=== PATIENT | female | born 1950 | race African-American/Black ===

== ENCOUNTER 2018-07-16 13:35 | Inpatient (IN) | payer MEDICARE, OTHER ==
[2018-07-16] MEDS ORDERED: Morphine 4 MG/ML VIAL ONE ×2 (13:50→15:45)
[2018-07-16] MEDS ORDERED: Ondansetron PF 4 MG/2 ML Vial ONE (13:50)
[2018-07-16 14:04] LABS: #Eosinphils 0.1 thou/uL (0.0-0.7); #Lymphocytes 1.8 thou/uL (1.20-3.40); #Monocytes 0.5 thou/uL (0.11-0.59); %Basophils 0.6 % (0.0-1.0); %Eosinophils 0.9 % (0.0-10.0); %Lymphocytes 28.3 % (21.0-51.0); %Monocytes 7.8 % (0.0-10.0); %Neutrophils 62.5 % (42.0-75.0); Hemoglobin 11.2 g/dL (12.0-16.0); Mean Corpuscular HGB CONC 32.3 g/dL (32.0-36.0); Mean Corpuscular Hemoglobin 26.8 pg (27.0-31.0); Mean Platelet Volume 10.7 fL (7.4-10.4); Platelet Count 234 thou/uL (130-400); RBC Distribution Width 13.6 % (11.5-14.5); Red Blood Cell (RBC) Count 4.16 mill/uL (4.20-5.40); White Blood Cell (WBC) Count 6.3 thou/uL (4.8-10.8)
[2018-07-16 14:29] LABS: ALT (SGPT) 140 U/L (8-55); AST (SGOT) 120 U/L (5-34); Albumin 4.2 g/dL (3.4-4.8); Alkaline Phosphatase 113 U/L (40-150); Anion Gap 17 mmol/L (10-20); BUN (Urea Nitrogen) 10 mg/dL (9.8-20.1); Bilirubin, Total 0.3 mg/dL (0.2-1.2); Calc. Creatinine Clearance 0 mL/min (70-130); Calcium 9.4 mg/dL (7.8-10.44); Carbon Dioxide 21 mmol/L (23-31); Chloride 101 mmol/L (98-107); Estimated GFR-MDRD 76; Globulin 3.3 g/dL (2.4-3.5); Glucose 89 mg/dL (80-115); Potassium 4.1 mmol/L (3.5-5.1); Protein, Total 7.5 g/dL (6.0-8.3); Sodium 135 mmol/L (136-145)
--- NOTE | 2018-07-16 14:33 | RAD ---
LEFT TIB FIB TWO VIEWS: History: Fall. FINDINGS: The lateral views does not entirely include the ankle. There is an obliquely oriented distal fibular fracture in a transverse medial malleolar fracture. I cannot really assess the posterior malleolus on this exam. IMPRESSION: Bimalleolar ankle fracture. Recommend ankle films for better assessment. POS: JUAN JOSE
--- NOTE | 2018-07-16 14:43 | RAD ---
LEFT ANKLE 3 VIEWS: Date: 07/16/18 HISTORY: Left ankle pain. FINDINGS/IMPRESSION: Trimalleolar fracture is seen with minimally displaced fractures of the malleoli. The ankle mortise i s maintained. There is soft tissue swelling. POS: C
--- NOTE | 2018-07-16 14:57 | RAD ---
PORTABLE CHEST: Date: 07/16/18 INDICATION: Preoperative evaluation. Fall with injury to left lower extremity. FINDINGS: Lungs are clear. Heart and mediastinum appear normal. No acute lung process seen. IMPRESSION: No acute findings. POS: [facility]
[2018-07-16 17:20] VITALS: BMI 24.4
[2018-07-16] MEDS ORDERED: Ibuprofen 600 MG TAB PO PRN (17:45)
[2018-07-16] MEDS ORDERED: traMADol HCl 50 MG TAB PO PRN (17:45)
[2018-07-16] MEDS ORDERED: hydrALAZINE 20 MG/ML VIAL SLOW IVP PRN (17:45)
[2018-07-16] MEDS ORDERED: Morphine 4 MG/ML VIAL SLOW IVP PRN (17:45)
[2018-07-16] MEDS ORDERED: Dextrose 5% in Water 1,000 ML IV PRN (17:45)
[2018-07-16] MEDS ORDERED: Dextrose 50% Abboject 50 ML SYRINGE SLOW IVP PRN (17:45)
[2018-07-16] MEDS ORDERED: Ondansetron PF 4 MG/2 ML Vial IVP PRN (17:45)
--- NOTE | 2018-07-16 18:24 | HP ---
REFERRING PHYSICIAN: Dr. Greene, Emergency Medicine. TRAUMA SURGEON: Paul Ambrosio DO. CONSULTING PHYSICIAN: Dr. Laurent, Orthopedic surgery. HISTORY OF PRESENT ILLNESS: The patient is a 67-year-old female patient, who reported a mechanical fall from standing last night. She reports getting up from bed quickly to change DVD player when she reported her legs gave out and she fell. She denies any loss of consciousness, dizziness, or lightheaded at that time. She did not hit her head and denied head or neck pain. The patient is not on any anticoagulation. After the injury, she reported that she got herself back up into bed and went to sleep. In the morning, she was complaining of pain and her daughter checked in on her and convinced the patient to go to the emergency department. In the emergency department, she was evaluated and received x-ray of the left tib- fib and left ankle as well as a chest x-ray which demonstrated a left trimalleolar ankle fracture. Dr. Laurent, Orthopedic surgery, was consulted as well as Trauma surgery. REVIEW OF SYSTEMS: All additional review of systems negative except as indicated in the HPI. PAST MEDICAL HISTORY: Hypertension and bipolar disorder. PAST SURGICAL HISTORY: Appendectomy at the age of 8. SOCIAL HISTORY: The patient reports drinking 2 to 3 beers per week and smokes a third of a pack of cigarettes a day. Also positive for cocaine use. She reports stopping use 11 years ago. MEDICATIONS: Trazodone, gabapentin, duloxetine, amlodipine, and lisinopril. ALLERGIES: NO KNOWN DRUG ALLERGIES. PHYSICAL EXAMINATION: VITAL SIGNS: Temperature 98.4, pulse 97, respirations 20, O2 saturation 92% on room air, blood pressure 105/70. PRIMARY ASSESSMENT: Airway intact. Equal breath sounds bilaterally. 2+ pulses palpable and radials, femorals and DP/PT bilaterally. GCS 15, gross motor and sensation intact. No lacerations, bruises, or external bleeding. SECONDARY ASSESSMENT: HEAD: Normocephalic and atraumatic. No gross palpable skull deformities/tenderness. EYES: Pupils 3 to 2, equal, round, and reactive to light. ENT: No hemotympanum. No epistaxis. No septal hematoma. Midface is stable to palpation. No bleeding in the oropharynx. Dentition is intact. No anterior injury/crepitus/tenderness to the neck. C-SPINE: No step-offs or deformities. Nontender, no C-collar in place. CHEST: Nontender. No crepitus. No abrasions/ecchymosis, equal chest movement. ABDOMEN: Soft, nontender, nondistended. PELVIS: Stable to palpation. Nontender. No abrasions noticed. RECTAL: Deferred. GENITOURINARY: Deferred. EXTREMITIES: Splint applied to left tib-fib and ankle with dressing clean, dry , and intact. No abrasions or ecchymosis noted. Otherwise, 2+ radial, femoral, and DP pulses present bilaterally. Gross motor and sensation intact. BACK/SPINE: No step-offs or deformities or tenderness palpable to the thoracic or lumbar spine, no abrasions or ecchymosis noted. NEUROLOGIC: 5/5 stoker erector and servicer strength bilaterally. Plantar flexion and dorsiflexion intact. Gross normal sensation x4 extremities. LABORATORY DATA: Laboratory findings; white blood cell 6.3, hemoglobin 11.2, hematocrit 34.6, and platelets 234. Sodium 135, potassium 4.1, chloride 101, carbon dioxide 21, BUN 10, creatinine 0.90. DIAGNOSTIC DATA: Chest x-ray demonstrated no acute findings. X-ray of the left ankle demonstrated trimalleolar fracture is seen with minimally displaced fracture of the malleoli. Ankle mortise is maintained. There is soft tissue swelling. X-ray of the left tib-fib demonstrated by malleolar ankle fracture. Recommend ankle film for better assessment. ASSESSMENT: 1. Status post mechanical fall from standing, delayed presentation. 2. Left trimalleolar ankle fracture. 3. History of hypertension and bipolar disorder. PLAN: The patient will be admitted to the Trauma Service and will go to the operating room tomorrow with Dr. Laurent. She can have a regular diet, but will be n.p.o. after midnight. We will start pain management with oral Tylenol, gabapentin, p.r.n. ibuprofen, and tramadol. We will continue p.r.n. morphine as needed for breakthrough pain. We will continue to monitor for signs of alcohol withdrawal, but suspicion is low. We will continue to hold additional home medications for now and will restart as clinically indicated. We will hold chemo-DVT prophylaxis at this time. PT and OT consulted to see the patient postoperatively. The patient was seen and examined by Dr. Ambrosio and myself today in the emergency department. Job ID: [id number] MTDD
[2018-07-16] MEDS: Acetaminophen 500 MG TAB PO SCH (20:22)
[2018-07-16] MEDS ORDERED: traMADol HCl 50 MG TAB ONE (21:40)
[2018-07-16] MEDS ORDERED: Famotidine/PF 20 mg/2ml Vial ONE (22:01)
[2018-07-16] MEDS: Senokot S 8.6-50 MG TAB PO SCH (22:03)
[2018-07-16] MEDS: Famotidine/PF 20 mg/2ml Vial SLOW IVP SCH (22:03)
[2018-07-16 23:15] LABS: Amphetamine Not Detected (NotDetected); Barbiturates Screen Not Detected (NotDetected); Benzodiazepine Screen Not Detected (NotDetected); Cocaine Metabolite Screen Not Detected (NotDetected); Medtox Control Line Valid? VALID (VALID); Medtox Reader # READER 4; Methadone Not Detected (NotDetected); Methamphetamine Not Detected (NotDetected); Opiate Screen Detected (NotDetected); Oxycodone Screen Not Detected (NotDetected); Phencyclidine (PCP) Not Detected (NotDetected); THC/Cannabinoid Screen Detected (NotDetected); Tricyclic Screen Not Detected (NotDetected)
[2018-07-17] MEDS ORDERED: Acetaminophen 500 MG TAB ONE ×3 (00:01→05:43)
[2018-07-17] MEDS: Acetaminophen 500 MG TAB PO SCH ×5 (00:02→23:51)
[2018-07-17] MEDS: Gabapentin 300 MG CAP PO SCH ×3 (00:22→20:34)
--- NOTE | 2018-07-17 01:20 | CON ---
DATE OF CONSULTATION: 07/16/2018 CHIEF COMPLAINT: Ms. Neff complains of left ankle pain. HISTORY OF PRESENT ILLNESS: Ms. Neff is a 67-year-old female, who was getting up out of bed today when she lost her balance and fell. She reports her legs collapsed. She twisted her ankle when she fell. She sustained pain and deformity of the left ankle. She was found to have a trimalleolar ankle fracture upon evaluation and x-ray in the emergency department. She has been splinted. She has been comfortable since the splint was placed. She denies other injuries. She has received pain medication. She reports being in good health and is normally able to ambulate without any assistive device at baseline. PAST MEDICAL HISTORY: Hypertension and bipolar disorder. PAST SURGICAL HISTORY: Appendectomy many years ago. No recent surgeries. SOCIAL HISTORY: The patient drinks occasional alcohol and occasional tobacco. History of drug use is positive as well. ALLERGIES: NO KNOWN DRUG ALLERGIES. FAMILY MEDICAL HISTORY: Noncontributory. IMAGING STUDIES: X-rays of the left ankle demonstrate a trimalleolar ankle fracture with displacement of the medial and lateral malleolus. PHYSICAL EXAMINATION: VITAL SIGNS: Temperature is 98.4, pulse is 97, respiratory rate 20, oxygen saturation 94% on room air. GENERAL: She is alert and oriented, lying supine, in no apparent distress. RESPIRATORY: Breathing comfortably. ABDOMEN: Soft, nontender, nondistended. MUSCULOSKELETAL: The patient's left lower extremity is in a splint. She is able to flex and extend the toes. Two-second capillary refill. Toes are warm and well perfused. Splint is clean and dry and intact. Right lower extremity and upper extremities are atraumatic. IMPRESSION: Left trimalleolar unstable ankle fracture in an elderly female. PLAN: At this point, the patient will need to go to the operating room. I will plan for surgical intervention tomorrow for her left ankle open reduction and internal fixation. Goal of surgery is to restore the anatomy and promote healing. Risks have been reviewed with her, she is at risk of infection, hardware failure, nonunion, malunion, and others. She wants to proceed as soon as possible. She should be n.p.o. at midnight. She will have preoperative antibiotics and DVT prophylaxis. Job ID: [id number]
[2018-07-17 04:38] LABS: #Basophils 0.1 thou/uL (0.0-0.2); #Eosinphils 0.1 thou/uL (0.0-0.7); #Lymphocytes 1.8 thou/uL (1.20-3.40); #Monocytes 0.4 thou/uL (0.11-0.59); #Neutrophils 2.5 thou/uL (1.40-6.50); %Basophils 1.7 % (0.0-1.0); %Eosinophils 2.4 % (0.0-10.0); %Monocytes 8.7 % (0.0-10.0); %Neutrophils 51.2 % (42.0-75.0); Hemoglobin 11.6 g/dL (12.0-16.0); Mean Corpuscular HGB CONC 32.2 g/dL (32.0-36.0); Mean Corpuscular Hemoglobin 27.5 pg (27.0-31.0); Mean Corpuscular Volume 85.4 fL (78.0-98.0); Mean Platelet Volume 11.9 fL (7.4-10.4); Platelet Count 219 thou/uL (130-400); RBC Distribution Width 13.6 % (11.5-14.5); Red Blood Cell (RBC) Count 4.23 mill/uL (4.20-5.40); White Blood Cell (WBC) Count 4.9 thou/uL (4.8-10.8)
[2018-07-17 04:46] LABS: INR-International Normal Ratio 1.1; PTT 29.6 SEC (22.9-36.1); Prothrombin Time 14.5 SEC (12.0-14.7)
[2018-07-17 04:59] LABS: Anion Gap 13 mmol/L (10-20); BUN (Urea Nitrogen) 6 mg/dL (9.8-20.1); Calc. Creatinine Clearance 57 mL/min (70-130); Calcium 9.2 mg/dL (7.8-10.44); Carbon Dioxide 23 mmol/L (23-31); Chloride 102 mmol/L (98-107); Estimated GFR-MDRD 80; Glucose 106 mg/dL (80-115); Magnesium 2.2 mg/dL (1.6-2.6); Phosphorus 3.1 mg/dL (2.3-4.7); Potassium 4.1 mmol/L (3.5-5.1); Sodium 134 mmol/L (136-145)
[2018-07-17] MEDS ORDERED: Potassium Phosphate 15 MMOL in Sodium Chloride 0.9% 250 ML 250 ML IVPB SCH (07:45)
[2018-07-17] MEDS: Sodium Chloride 0.9% 1,000 ML IV SCH (08:15)
[2018-07-17] MEDS: Famotidine/PF 20 mg/2ml Vial SLOW IVP SCH ×2 (08:16→20:35)
[2018-07-17] MEDS: DULoxetine 60 MG CAP PO SCH ×2 (08:16→20:34)
[2018-07-17] MEDS: Polyethylene Glycol 3350 17 GM Packet PO SCH (08:16)
[2018-07-17] MEDS: Senokot S 8.6-50 MG TAB PO SCH ×2 (08:16→20:34)
[2018-07-17] MEDS ORDERED: Polyethylene Glycol 3350 17 GM Packet PO SCH (09:00)
[2018-07-17] MEDS ORDERED: Ketorolac Tromethamine 30 MG/ML VIAL ONE ×3 (09:02→13:52)
[2018-07-17] MEDS ORDERED: Ketorolac Tromethamine 30 MG/ML VIAL IVP SCH (09:30)
[2018-07-17] MEDS ORDERED: Lidocaine 1% PF 5 ML VIAL ONE (10:37)
[2018-07-17] MEDS ORDERED: PROPOFOL 200 MG/20 ML VIAL ONE (10:37)
[2018-07-17] MEDS ORDERED: Ondansetron PF 4 MG/2 ML Vial ONE (10:37)
[2018-07-17] MEDS ORDERED: Bupivacaine PF 0.5% 30 ML VIAL ONE (11:35)
[2018-07-17] MEDS ORDERED: Fentanyl 100 MCG/2 ML VIAL ONE (11:45)
[2018-07-17] MEDS ORDERED: Dexamethasone 4 mg/ml Vial ONE (11:47)
[2018-07-17] MEDS ORDERED: Midazolam HCl 2 mg/2 ml Vial ONE (11:52)
[2018-07-17] MEDS ORDERED: CEFAZOLIN 2 GM/50 ML BAG IVPB SCH (12:00)
[2018-07-17] MEDS ORDERED: CEFAZOLIN 2 GM/50 ML BAG ONE (12:05)
[2018-07-17] MEDS ORDERED: Promethazine HCl 25 MG/ML VIAL SLOW IVP PRN (13:00)
[2018-07-17] MEDS ORDERED: Promethazine HCl 25 MG/ML VIAL IM PRN (13:00)
[2018-07-17] MEDS ORDERED: Ondansetron HCl/PF 4 MG/2 ML Vial IVP PRN (13:00)
[2018-07-17] MEDS ORDERED: CEFAZOLIN/Water 2 GM/20 ML SYRINGE SLOW IVP SCH (13:30)
--- NOTE | 2018-07-17 13:32 | PRG ---
DATE OF SERVICE: 07/17/2018 SUBJECTIVE: The patient is a 67-year-old female status post mechanical fall from standing with a left trimalleolar ankle fracture. The patient was seen this morning sitting up in bed. Reported pain occasionally that was relieved with current pain regimen. She is n.p.o. for the OR today with Dr. Laurent for fixation of her left ankle. She has no other complaints at this time. Denies nausea, vomiting, or diarrhea. PHYSICAL EXAMINATION: VITAL SIGNS: Temperature 98.4, pulse 78, respirations 16, oxygen saturation 96% on room air, and blood pressure 161/73. GENERAL: Alert and well-appearing elderly female, sitting up in bed. NEURO: GCS is 15. Alert and oriented x3. Gross motor and sensation intact. Pupils equal, round, reactive to light. PULMONARY: No signs of acute distress. Equal chest rise and fall. Lung grimaldo clear bilaterally. HEART: Regular rate and rhythm. No murmurs, gallops, or rubs. GI. Abdomen is soft, nontender, nondistended with positive bowel sounds. EXTREMITIES: Gross motor and sensation intact. Splint to left lower extremity with dressings clean, dry, and intact. 2+ pulses in all extremities. No swelling noted. LABORATORY FINDINGS: White blood cell count 4.9, hemoglobin 11.6, hematocrit 36.1, platelets 219. Sodium 134, potassium 4.1, chloride 102, carbon dioxide 23, BUN 9, creatinine 0.86, phos 3.1, magnesium 2.2. DIAGNOSTIC FINDINGS: There are no diagnostic findings to report. ASSESSMENT: 1. Status post mechanical fall from standing, delayed presentation. 2. Left trimalleolar fracture. 3. History of hypertension and bipolar disorder. 4. Hypophosphatemia. PLAN: The patient will go to the OR today with Dr. Laurent for fixation of her left ankle fracture. Postop, she can have a regular diet, but is n.p.o. for now with normal saline at 75 an hour. She will resume her current pain regimen when she comes back from the OR. Her phosphorus was replaced. Postop, she can start her chemo-DVT prophylaxis. Postop. She will also receive physical and occupational therapy. The patient was seen and examined by Dr. Ambrosio and myself this morning during rounds. Job ID: [id number]
--- NOTE | 2018-07-17 13:52 | PRG ---
DATE OF SERVICE: 07/17/2018 SUBJECTIVE: Ms. Neff is a 67-year-old woman, who was admitted yesterday following a fall, sustaining a trimalleolar ankle fracture. The patient is awake and alert, reporting significant pain to the left lower extremity. She denies any nausea, vomiting, chest pain, or dyspnea. OBJECTIVE: VITAL SIGNS: Blood pressure this morning is 161/73, pulse 79, respiratory rate is 18, temperature 98.4 degrees Fahrenheit, and oxygen saturation 96% on room air. HEART: Reveals regular rate and rhythm. No murmurs or gallops auscultated. LUNGS: Clear to auscultation bilaterally. Breathing, regular and unlabored. ABDOMEN: Soft, nontender, and nondistended. NEUROLOGIC: Reveals no focal deficits present. LABORATORY FINDINGS: Today include a CBC with 4900 white blood cells, hemoglobin and hematocrit stable at 11.6 and 36.1 respectively, and platelet count is 219,000. Metabolic profile; sodium 134, potassium is 4.1, chloride is 102, bicarb 23, BUN 6, creatinine 0.86, glucose 106, magnesium 2.2, and phosphorus is 3.1. IMPRESSION: 1. Post injury day #1, status post fall. 2. Trimalleolar left ankle fracture. PLAN: Optimize pain management. The patient is certainly hemodynamically stable to proceed with Orthopedic Surgery for repair of the left ankle fracture. The above findings and plan discussed with the patient, who indicates understanding information given. I have answered her questions. Job ID: [id number]
--- NOTE | 2018-07-17 14:03 | RAD ---
LEFT ANKLE THREE VIEWS: History: Fracture. ORIF left ankle. FINDINGS/IMPRESSION: Interval reduction and internal fixation of the fractures are seen since the previous day's exam. Two screws are seen present in the medial malleolus and plate and screw through the distal fibula. POS: OFF
--- NOTE | 2018-07-17 14:29 | OP ---
DATE OF PROCEDURE: 07/17/2018 PROCEDURE PERFORMED: Open reduction and internal fixation of left trimalleolar ankle fracture. PREOPERATIVE DIAGNOSIS: Left trimalleolar ankle fracture with displacement. POSTOPERATIVE DIAGNOSIS: Left trimalleolar ankle fracture with displacement. COMPLICATIONS: None. ESTIMATED BLOOD LOSS: Minimal. SUBSYSTEMS ENGINEER: Lena Reynoso PA-C. IMPLANTS: Synthes 1/3 tubular plate, 6-hole with two 4.0 cancellous screws, partially threaded. INDICATIONS: Ms. Neff is a 67-year-old female, who fell, and she fractured her left ankle. She was indicated for open reduction and internal fixation to restore anatomic alignment and promote healing and prevent complications of prolonged bedrest. Risks have been reviewed in detail. She elected to proceed with the operation. DESCRIPTION OF PROCEDURE: Ms. Neff was identified in the preoperative holding area. Correct extremity was marked. She was carried to the operating room. She was positioned supine. General anesthesia was induced. A regional block had been placed as well. The left lower extremity was prepped and draped as routine. At this point, we performed a lateral approach to the distal fibula. We dissected down through the subcutaneous tissues to the bony level. The fracture of the fibula was identified and exposed. At this point, we irrigated hematoma including the bony edges. We then reduced the fracture into an anatomic position. We placed a 1/3 tubular plate along the lateral cortex. Six screws were placed transfixing the plate to the bone and holding our reduction rigidly. Next, we took x-ray images confirming hardware placement. There were no complications. At this point, we moved to the medial side. A medial incision was made. We dissected down directly to the bony level. We exposed the medial malleolar fracture. We then irrigated hematoma. At this point, we reduced the medial malleolar fracture back into its anatomic position. We then placed two screws, one anterior and one posterior across the medial malleolar fracture. Again, reducing the fracture, holding it in a rigid position. X-rays were obtained as well as a stress view, which was negative. We thoroughly irrigated with copious lavage. We then closed with 0 Vicryl suture, 2-0 Vicryl suture, and 3-0 nylon for the skin. A sterile dressing was applied at this point. The patient was taken to the recovery room in good condition without complication. Job ID: [id number]
[2018-07-17] MEDS ORDERED: Bupivacaine HCl 0.5%/Epinephrine 1:200,000/PF 30 ml Vial ONE (16:44)
[2018-07-17] MEDS: CEFAZOLIN 2 GM/50 ML-DEXTROSE 2 GM in Premix Bag 1 BAG IVPB SCH (20:27)
[2018-07-17] MEDS: traMADol HCl 50 MG TAB PO PRN (20:27)
[2018-07-17] MEDS ORDERED: Prevnar 13-Val Conj/PF 0.5 ML SYRINGE IM ONE (21:00)
[2018-07-18] MEDS: Sodium Chloride 0.9% 1,000 ML IV SCH (03:45)
[2018-07-18] MEDS: CEFAZOLIN 2 GM/50 ML-DEXTROSE 2 GM in Premix Bag 1 BAG IVPB SCH (04:59)
[2018-07-18] MEDS: Acetaminophen 500 MG TAB PO SCH ×4 (06:19→23:32)
[2018-07-18 07:12] LABS: #Lymphocytes 0.9 thou/uL (1.20-3.40); #Monocytes 0.5 thou/uL (0.11-0.59); #Neutrophils 9.9 thou/uL (1.40-6.50); %Basophils 0.1 % (0.0-1.0); %Eosinophils 0.1 % (0.0-10.0); %Lymphocytes 8.3 % (21.0-51.0); %Monocytes 4.1 % (0.0-10.0); %Neutrophils 87.4 % (42.0-75.0); Hemoglobin 9.6 g/dL (12.0-16.0); Mean Corpuscular HGB CONC 31.4 g/dL (32.0-36.0); Mean Corpuscular Hemoglobin 27.4 pg (27.0-31.0); Mean Corpuscular Volume 87.1 fL (78.0-98.0); Mean Platelet Volume 12.1 fL (7.4-10.4); Platelet Count 184 thou/uL (130-400); RBC Distribution Width 13.7 % (11.5-14.5); Red Blood Cell (RBC) Count 3.52 mill/uL (4.20-5.40); White Blood Cell (WBC) Count 11.4 thou/uL (4.8-10.8)
[2018-07-18 07:25] LABS: Anion Gap 16 mmol/L (10-20); BUN (Urea Nitrogen) 5 mg/dL (9.8-20.1); Calc. Creatinine Clearance 57 mL/min (70-130); Calcium 8.6 mg/dL (7.8-10.44); Carbon Dioxide 21 mmol/L (23-31); Chloride 105 mmol/L (98-107); Estimated GFR-MDRD 80; Glucose 132 mg/dL (80-115); Phosphorus 3.7 mg/dL (2.3-4.7); Potassium 4.1 mmol/L (3.5-5.1); Sodium 138 mmol/L (136-145)
[2018-07-18] MEDS: Polyethylene Glycol 3350 17 GM Packet PO SCH (08:28)
[2018-07-18] MEDS: DULoxetine 60 MG CAP PO SCH ×2 (08:29→20:20)
[2018-07-18] MEDS: Senokot S 8.6-50 MG TAB PO SCH ×2 (08:29→20:20)
[2018-07-18] MEDS: Gabapentin 300 MG CAP PO SCH ×2 (08:29→20:20)
[2018-07-18] MEDS: Famotidine/PF 20 mg/2ml Vial SLOW IVP SCH (08:31)
[2018-07-18] MEDS: traMADol HCl 50 MG TAB PO PRN ×3 (08:36→21:01)
[2018-07-18] MEDS ORDERED: Ibuprofen 600 MG TAB PO PRN (08:40)
[2018-07-18] MEDS ORDERED: Gabapentin 300 MG CAP PO SCH (09:00)
[2018-07-18] MEDS: Aspirin 81 mg Enteric Coated Tablet PO SCH ×2 (09:44→20:21)
[2018-07-18] MEDS: Lisinopril 10 MG TAB PO SCH (09:45)
[2018-07-18] MEDS: Amlodipine 5 MG TAB PO SCH (09:45)
--- NOTE | 2018-07-18 12:36 | PRG ---
DATE OF SERVICE: 07/18/2018 SUBJECTIVE: The patient is hospital day 2, postop day 1, status post left trimalleolar fracture for which she underwent open reduction and internal fixation of the same. Yesterday, she tolerated the procedure well. This morning, she has been working with Physical and Occupational therapy. Her pain is controlled. She is tolerating a diet. OBJECTIVE: VITAL SIGNS: Temperature is 98.1, heart rate 92, blood pressure 157/91, respirations 16, and oxygen saturation is 96% on room air. GENERAL: The patient is resting comfortably in bed. She is awake, alert, and oriented. HEENT: Unremarkable. LUNGS: Clear to auscultation with good inspiratory and expiratory effort. HEART: Regular rate and rhythm. ABDOMEN: Soft, flat, and nontender with active bowel sounds. EXTREMITIES: Neurovascularly intact x4. Postop dressing and splint are clean, dry, and intact. LABORATORY FINDINGS: White blood cell count 11.1, hemoglobin 9.6, hematocrit 30.6, and platelets 184. Sodium 138, potassium 4.1, chloride 105, CO2 of 21, BUN 5, creatinine 0.86, glucose 132, magnesium 2.0, and phosphorus 3.7. DIAGNOSTIC STUDIES: There are no radiographs to review this morning. ASSESSMENT AND PLAN: 1. Status post ground level fall. 2. Left trimalleolar fracture, status post open reduction and internal fixation. Plan will be to continue physical and occupational therapy. Rehab screening has been submitted, and we will await the final placement decision. The patient was evaluated with Dr. Ambrosio this morning during rounds. Job ID: [id number]
[2018-07-18] MEDS ORDERED: Non-Formulary Item 1 EACH (Trazodone Hcl [Trazodone Hcl] 1 TAB) PO SCH (21:00)
[2018-07-19] MEDS: Acetaminophen 500 MG TAB PO SCH ×2 (05:13→11:31)
[2018-07-19] MEDS: traMADol HCl 50 MG TAB PO PRN ×2 (05:13→11:31)
[2018-07-19] MEDS: DULoxetine 60 MG CAP PO SCH (08:45)
[2018-07-19] MEDS: Polyethylene Glycol 3350 17 GM Packet PO SCH (08:45)
[2018-07-19] MEDS: Amlodipine 5 MG TAB PO SCH (08:45)
[2018-07-19] MEDS: Aspirin 81 mg Enteric Coated Tablet PO SCH (08:46)
[2018-07-19] MEDS: Lisinopril 10 MG TAB PO SCH (08:47)
[2018-07-19] MEDS: Gabapentin 300 MG CAP PO SCH (08:47)
[2018-07-19] MEDS: Senokot S 8.6-50 MG TAB PO SCH (08:47)
--- NOTE | 2018-07-19 12:30 | DIS ---
DATE OF ADMISSION: 07/16/2018 DATE OF DISCHARGE: 07/19/2018 ADMISSION DIAGNOSES: 1. Status post fall from standing with delayed presentation. 2. Left trimalleolar ankle fracture. 3. History of hypertension and bipolar disorder. CONSULTATIONS: Orthopedics, Edwin Laurent MD PROCEDURES PERFORMED: Open reduction and internal fixation of left trimalleolar ankle fracture. SUMMARY: The patient is a 67-year-old woman, who reportedly had a fall from standing the previous night of her admission. She was brought to the Emergency Department, where she underwent evaluation and examination and was noted to have the above injury. She would be taken to the operating room to undergo her surgical procedure, which she tolerated well. She will be working with physical and occupational therapy rather quickly and progressed quickly to the point that she requested that she be discharged home with home health and she had family that will be able to help care for her. This was agreed upon by the team and she will be discharged home at time of discharge. She was tolerating a diet. Her pain was controlled and she was ambulating with her walker. Home health with physical therapy was arranged by Case Management and the patient will follow up with Dr. Laurent in 10 to 14 days or sooner as needed. The patient may follow up with Trauma Clinic, if needed. Job ID: [id number]
[2018-07-19 15:01] VITALS: BP 134/68; TEMP 97.9
== END 2018-07-19 15:48 | disposition home health service (06) | DRG 494 ==
LOC: ERS 13:35 → ERHOLD 16:27 → SURG A 07-17 12:01
PROVIDERS: ADMIT Surgery; ATTEND Surgery
PROC: 0QSK04Z Reposition Left Fibula with Internal Fixation Device, Open Approach (ICD-10-PCS; principal; 2018-07-17)
PROC: 0QSH04Z Reposition Left Tibia with Internal Fixation Device, Open Approach (ICD-10-PCS; 2018-07-17)
PROC: 0QSH04Z Reposition Left Tibia with Internal Fixation Device, Open Approach (ICD-10-PCS; 2018-07-17)
DX: S82.852A Displaced trimalleolar fracture of left lower leg, initial encounter for closed fracture (principal); I10 Essential (primary) hypertension; F31.9 Bipolar disorder, unspecified; E83.39 Other disorders of phosphorus metabolism; F17.210 Nicotine dependence, cigarettes, uncomplicated; Z79.899 Other long term (current) drug therapy; W18.39XA Other fall on same level, initial encounter; Y92.009 Unspecified place in unspecified non-institutional (private) residence as the place of occurrence of the external cause
CPT/HCPCS: 27818; 36415; 36416; 71045; 76000; 80048; 80053; 80306; 83735; 84100; 85025; 85610; 85730; 93005; 96374; 96375; 96376; C1713; G0390; J0670; J1100; J1885; J2001; J2250; J2270; J2405; J2704; J3010; J7050; S0020; S0028

== ENCOUNTER 2019-04-05 20:44 | Inpatient (IN) | payer MEDICARE, OTHER ==
[~2019-04-05 20:44] MED LIST: ISOVUE-370 76%-LOCM 1 ML ONE
[2019-04-05] MEDS ORDERED: Morphine 4 MG/ML VIAL ONE (21:13)
[2019-04-05 21:35] LABS: #Basophils 0.1 thou/uL (0.0-0.2); #Eosinphils 0.1 thou/uL (0.0-0.7); #Lymphocytes 3.8 thou/uL (1.20-3.40); #Monocytes 0.4 thou/uL (0.11-0.59); #Neutrophils 4.2 thou/uL (1.40-6.50); %Basophils 0.7 % (0.0-1.0); %Eosinophils 1.7 % (0.0-10.0); %Lymphocytes 44.4 % (21.0-51.0); %Monocytes 4.3 % (0.0-10.0); %Neutrophils 48.9 % (42.0-75.0); Hemoglobin 11.7 g/dL (12.0-16.0); Mean Corpuscular HGB CONC 33.4 g/dL (32.0-36.0); Mean Corpuscular Hemoglobin 25.4 pg (27.0-31.0); Mean Corpuscular Volume 76.2 fL (78.0-98.0); Mean Platelet Volume 10.9 fL (7.4-10.4); Platelet Count 214 thou/uL (130-400); RBC Distribution Width 13.4 % (11.5-14.5); White Blood Cell (WBC) Count 8.5 thou/uL (4.8-10.8)
[2019-04-05 21:56] LABS: ALT (SGPT) 44 U/L (8-55); AST (SGOT) 42 U/L (5-34); Albumin 4.3 g/dL (3.4-4.8); Alkaline Phosphatase 124 U/L (40-110); Anion Gap 13 mmol/L (10-20); BUN (Urea Nitrogen) 15 mg/dL (9.8-20.1); Bilirubin, Total 0.2 mg/dL (0.2-1.2); Calc. Creatinine Clearance 0 mL/min (70-130); Calcium 9.2 mg/dL (7.8-10.44); Carbon Dioxide 22 mmol/L (23-31); Chloride 104 mmol/L (98-107); Estimated GFR-MDRD 67; Globulin 3.2 g/dL (2.4-3.5); Glucose 149 mg/dL (80-115); Potassium 3.8 mmol/L (3.5-5.1); Protein, Total 7.5 g/dL (6.0-8.3); Sodium 135 mmol/L (136-145)
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
[2019-04-05] MEDS ORDERED: Promethazine HCl 25 MG/ML VIAL IM PRN (23:36)
[2019-04-05] MEDS ORDERED: HumaLOG 300 UNITS/3 ML VIAL SC PRN (23:36)
[2019-04-05] MEDS ORDERED: Ondansetron PF 4 MG/2 ML Vial IVP PRN (23:36)
[2019-04-05] MEDS ORDERED: Dextrose 5% in Water 1,000 ML IV PRN (23:36)
[2019-04-05] MEDS ORDERED: Dextrose 50% Abboject 50 ML SYRINGE SLOW IVP PRN (23:36)
[2019-04-05] MEDS ORDERED: Gabapentin 300 MG CAP PO PRN (23:39)
[2019-04-06] MEDS ORDERED: Morphine 2 MG/ML SYRINGE ONE (00:03)
[2019-04-06 00:32] LABS: INR-International Normal Ratio 1.2; PTT 25.5 SEC (22.9-36.1); Prothrombin Time 14.9 SEC (12.0-14.7)
[2019-04-06 00:49] LABS: Troponin I Less than 0.010 ng/mL (< 0.028)
[2019-04-06] MEDS ORDERED: Acetaminophen 1,000 MG in Premix Bag 1 BAG IVPB SCH (01:15)
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
[2019-04-06] MEDS: Acetaminophen 500 MG TAB PO SCH ×4 (03:35→17:10)
[2019-04-06] MEDS: Sodium Chloride 0.9% 1,000 ML IV SCH ×3 (03:36→17:10)
[2019-04-06 03:57] LABS: Hemoglobin 11.4 g/dL (12.0-16.0); Platelet Count 208 thou/uL (130-400)
[2019-04-06 03:58] LABS: #Lymphocytes 1.4 thou/uL (1.20-3.40); #Monocytes 0.4 thou/uL (0.11-0.59); #Neutrophils 11.3 thou/uL (1.40-6.50); %Basophils 0.1 % (0.0-1.0); %Eosinophils 0.1 % (0.0-10.0); %Lymphocytes 10.4 % (21.0-51.0); %Neutrophils 86.5 % (42.0-75.0); Hemoglobin 11.3 g/dL (12.0-16.0); Mean Corpuscular HGB CONC 32.6 g/dL (32.0-36.0); Mean Corpuscular Hemoglobin 24.9 pg (27.0-31.0); Mean Corpuscular Volume 76.2 fL (78.0-98.0); Mean Platelet Volume 11.2 fL (7.4-10.4); Platelet Count 204 thou/uL (130-400); RBC Distribution Width 13.3 % (11.5-14.5); Red Blood Cell (RBC) Count 4.56 mill/uL (4.20-5.40)
[2019-04-06] MEDS: hydrALAZINE 20 MG/ML VIAL SLOW IVP PRN ×2 (04:18→16:26)
[2019-04-06 04:19] LABS: Anion Gap 13 mmol/L (10-20); BUN (Urea Nitrogen) 16 mg/dL (9.8-20.1); Calc. Creatinine Clearance 0 mL/min (70-130); Carbon Dioxide 23 mmol/L (23-31); Chloride 103 mmol/L (98-107); Estimated GFR-MDRD 78; Glucose 124 mg/dL (80-115); Potassium 4.1 mmol/L (3.5-5.1); Sodium 135 mmol/L (136-145)
[2019-04-06] MEDS ORDERED: hydrALAZINE 20 MG/ML VIAL ONE (04:20)
[2019-04-06] MEDS: Famotidine/PF 20 mg/2ml Vial SLOW IVP SCH ×2 (08:51→21:00)
[2019-04-06] MEDS: traMADol HCl 50 MG TAB PO PRN ×3 (08:52→21:00)
[2019-04-06 08:58] VITALS: BMI 25.0
[2019-04-06] MEDS ORDERED: FLU VACC TS2019-20(65YR UP)/PF 180 MCG/0.5 ML SYRINGE IM ONE (09:45)
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
[2019-04-06] MEDS ORDERED: Sodium Bicarbonate 150 MEQ in Dextrose 5% in Water 1,000 ML IV SCH (11:00)
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
[2019-04-06 13:45] LABS: #Basophils 0.1 thou/uL (0.0-0.2); #Lymphocytes 2.3 thou/uL (1.20-3.40); #Monocytes 0.4 thou/uL (0.11-0.59); #Neutrophils 6.5 thou/uL (1.40-6.50); %Basophils 0.5 % (0.0-1.0); %Eosinophils 0.3 % (0.0-10.0); %Monocytes 4.2 % (0.0-10.0); Hemoglobin 9.6 g/dL (12.0-16.0); Mean Corpuscular HGB CONC 32.8 g/dL (32.0-36.0); Mean Corpuscular Hemoglobin 25.1 pg (27.0-31.0); Mean Corpuscular Volume 76.4 fL (78.0-98.0); Mean Platelet Volume 10.8 fL (7.4-10.4); Platelet Count 179 thou/uL (130-400); RBC Distribution Width 13.2 % (11.5-14.5); Red Blood Cell (RBC) Count 3.81 mill/uL (4.20-5.40); White Blood Cell (WBC) Count 9.3 thou/uL (4.8-10.8)
[2019-04-06 20:20] LABS: Hemoglobin 9.8 g/dL (12.0-16.0); Platelet Count 185 thou/uL (130-400)
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
[2019-04-07] MEDS: Acetaminophen 500 MG TAB PO SCH ×4 (00:39→17:49)
[2019-04-07] MEDS: Sodium Chloride 0.9% 1,000 ML IV SCH (00:41)
[2019-04-07] MEDS: traMADol HCl 50 MG TAB PO PRN (05:29)
[2019-04-07] MEDS: hydrALAZINE 20 MG/ML VIAL SLOW IVP PRN (06:04)
[2019-04-07 06:08] LABS: #Eosinphils 0.1 thou/uL (0.0-0.7); #Lymphocytes 2.2 thou/uL (1.20-3.40); #Monocytes 0.4 thou/uL (0.11-0.59); #Neutrophils 3.9 thou/uL (1.40-6.50); %Basophils 0.4 % (0.0-1.0); %Lymphocytes 33.3 % (21.0-51.0); %Monocytes 5.5 % (0.0-10.0); %Neutrophils 59.8 % (42.0-75.0); Hemoglobin 9.4 g/dL (12.0-16.0); Mean Corpuscular Hemoglobin 25.2 pg (27.0-31.0); Mean Corpuscular Volume 76.5 fL (78.0-98.0); Mean Platelet Volume 11.5 fL (7.4-10.4); Platelet Count 173 thou/uL (130-400); RBC Distribution Width 13.2 % (11.5-14.5); Red Blood Cell (RBC) Count 3.73 mill/uL (4.20-5.40); White Blood Cell (WBC) Count 6.5 thou/uL (4.8-10.8)
[2019-04-07 06:37] LABS: Anion Gap 11 mmol/L (10-20); BUN (Urea Nitrogen) 8 mg/dL (9.8-20.1); Calc. Creatinine Clearance 63 mL/min (70-130); Calcium 8.6 mg/dL (7.8-10.44); Carbon Dioxide 24 mmol/L (23-31); Chloride 104 mmol/L (98-107); Estimated GFR-MDRD 89; Glucose 100 mg/dL (80-115); Magnesium 2.1 mg/dL (1.6-2.6); Phosphorus 2.4 mg/dL (2.3-4.7); Potassium 3.3 mmol/L (3.5-5.1); Sodium 136 mmol/L (136-145)
[2019-04-07] MEDS ORDERED: DULoxetine 60 MG CAP PO SCH ×2 (07:00→09:00)
[2019-04-07] MEDS ORDERED: Lisinopril 10 MG TAB PO SCH ×2 (07:00→09:00)
[2019-04-07] MEDS ORDERED: Amlodipine 10 MG TAB PO SCH (07:00)
[2019-04-07] MEDS ORDERED: Potassium Phosphate 15 MMOL in Sodium Chloride 0.9% 250 ML 250 ML IVPB SCH (07:15)
[2019-04-07] MEDS: Famotidine/PF 20 mg/2ml Vial SLOW IVP SCH (07:15)
[2019-04-07] MEDS ORDERED: Amlodipine 5 MG TAB PO SCH (09:00)
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
[2019-04-07] MEDS: Famotidine 20 MG TAB PO SCH ×2 (09:48→20:17)
[2019-04-07] MEDS: Ferrous Sulfate 325 MG TAB PO SCH (17:50)
[2019-04-07] MEDS: DULoxetine 60 MG CAP PO SCH (20:17)
[2019-04-07] MEDS: Ascorbic Acid 500 mg Chewable Tablet PO SCH (20:17)
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
[2019-04-08] MEDS: Acetaminophen 500 MG TAB PO SCH ×4 (00:04→17:18)
[2019-04-08 05:46] LABS: #Eosinphils 0.1 thou/uL (0.0-0.7); #Lymphocytes 2.4 thou/uL (1.20-3.40); #Monocytes 0.3 thou/uL (0.11-0.59); #Neutrophils 3.2 thou/uL (1.40-6.50); %Basophils 0.2 % (0.0-1.0); %Eosinophils 1.9 % (0.0-10.0); %Lymphocytes 39.4 % (21.0-51.0); %Monocytes 5.3 % (0.0-10.0); %Neutrophils 53.1 % (42.0-75.0); Hemoglobin 9.2 g/dL (12.0-16.0); Mean Corpuscular HGB CONC 32.5 g/dL (32.0-36.0); Mean Corpuscular Hemoglobin 24.8 pg (27.0-31.0); Mean Corpuscular Volume 76.2 fL (78.0-98.0); Mean Platelet Volume 10.8 fL (7.4-10.4); Platelet Count 177 thou/uL (130-400); RBC Distribution Width 13.1 % (11.5-14.5); Red Blood Cell (RBC) Count 3.72 mill/uL (4.20-5.40)
[2019-04-08 06:27] LABS: BUN (Urea Nitrogen) 13 mg/dL (9.8-20.1); Calc. Creatinine Clearance 50 mL/min (70-130); Calcium 8.9 mg/dL (7.8-10.44); Carbon Dioxide 15 mmol/L (23-31); Chloride 104 mmol/L (98-107); Estimated GFR-MDRD 68; Glucose 88 mg/dL (80-115); Phosphorus 3.5 mg/dL (2.3-4.7); Potassium 4.4 mmol/L (3.5-5.1); Sodium 132 mmol/L (136-145)
[2019-04-08 06:28] LABS: Anion Gap 17 mmol/L (10-20)
[2019-04-08] MEDS: DULoxetine 60 MG CAP PO SCH (08:25)
[2019-04-08] MEDS: Famotidine 20 MG TAB PO SCH (08:25)
[2019-04-08] MEDS: Ferrous Sulfate 325 MG TAB PO SCH ×2 (08:25→17:18)
[2019-04-08] MEDS: Ascorbic Acid 500 mg Chewable Tablet PO SCH (08:25)
[2019-04-08] MEDS ORDERED: Lisinopril 10 MG TAB PO SCH (09:00)
[2019-04-08] MEDS ORDERED: Amlodipine 5 MG TAB PO SCH (09:00)
[2019-04-08 15:22] VITALS: BP 157/78; TEMP 98.4
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
== END 2019-04-08 17:52 | disposition home or self-care (01) | DRG 914 ==
LOC: ERS 20:44 → ERHOLD 04-06 02:26 → CCU 04-06 08:41 → SURG B 04-07 11:15
PROVIDERS: ADMIT Surgery; ATTEND Surgery
DX: S36.892A Contusion of other intra-abdominal organs, initial encounter (principal); I10 Essential (primary) hypertension; I95.9 Hypotension, unspecified; F31.9 Bipolar disorder, unspecified; F17.210 Nicotine dependence, cigarettes, uncomplicated; V49.40XA Driver injured in collision with unspecified motor vehicles in traffic accident, initial encounter; Z79.899 Other long term (current) drug therapy; Z91.19 Patient's noncompliance with other medical treatment and regimen; Z90.49 Acquired absence of other specified parts of digestive tract; Z91.040 Latex allergy status
CPT/HCPCS: 36415; 71260; 74177; 80048; 80053; 83735; 84100; 84484; 85025; 85610; 85730; 86850; 86900; 86901; 93005; 96365; 96375; 96376; G0390; J0131; J0360; J2270; J7050; J7070; Q9966; S0028

== ENCOUNTER 2022-09-11 19:39 | Emergency (ER) | payer OTHER ==
[~2022-09-11 19:39] MED LIST changes: -ISOVUE-370 76%-LOCM 1 ML ONE; +Iopamidol-370 76% 500 ML MDV (1 ML CHARGE) ONE
[2022-09-11 20:46] LABS: #Basophils 0.2 thou/uL (0.0-0.2); #Lymphocytes 2.3 thou/uL (1.20-3.40); #Monocytes 0.7 thou/uL (0.11-0.59); #Neutrophils 9.3 thou/uL (1.40-6.50); %Basophils 1.3 % (0.0-1.0); %Eosinophils 0.4 % (0.0-10.0); %Lymphocytes 18.5 % (21.0-51.0); %Monocytes 5.2 % (0.0-10.0); %Neutrophils 74.7 % (42.0-75.0); Hemoglobin 14.7 g/dL (12.0-16.0); Mean Corpuscular HGB CONC 32.5 g/dL (32.0-36.0); Mean Corpuscular Hemoglobin 26.4 pg (27.0-31.0); Mean Corpuscular Volume 81.3 fl (78.0-98.0); Mean Platelet Volume 11.3 fL (7.4-10.4); Platelet Count 309 10x3/uL (130-400); RBC Distribution Width 14.9 % (11.5-14.5); Red Blood Cell (RBC) Count 5.57 mill/uL (4.20-5.40); White Blood Cell (WBC) Count 12.5 10x3/uL (4.8-10.8)
[2022-09-11] MEDS ORDERED: Ondansetron PF 4 MG/2 ML Vial ONE (20:48)
[2022-09-11] MEDS ORDERED: Morphine 4 MG/ML VIAL ONE (20:48)
[2022-09-11 21:02] LABS: ALT (SGPT) 16 U/L (8-55); AST (SGOT) 22 U/L (5-34); Albumin 4.5 g/dL (3.4-4.8); Alkaline Phosphatase 79 U/L (40-110); Anion Gap 16 mmol/L (10-20); BUN (Urea Nitrogen) 23 mg/dL (9.8-20.1); Bilirubin, Total 0.5 mg/dL (0.2-1.2); Calc. Creatinine Clearance 0 mL/min (70-130); Calcium 9.6 mg/dL (7.8-10.44); Carbon Dioxide 18 mmol/L (23-31); Chloride 97 mmol/L (98-107); Estimated GFR 39; Globulin 3.5 g/dL (2.4-3.5); Glucose 135 mg/dL (83-110); Lipase 19 U/L (8-78); Potassium 3.4 mmol/L (3.5-5.1); Sodium 128 mmol/L (136-145)
[2022-09-11 22:30] LABS: Bilirubin Negative (Negative); Blood, Urine Negative (Negative); Clarity Clear (Clear); Glucose, Urine (Dipstick) Normal (Negative); Ketone, Urine Negative (Negative); Leukocyte Negative Leu/uL (Negative); Nitrite Negative (Negative); Protein, Urine (Dipstick) 10 mg/dL (Neg-Trace); Specific Gravity, Urine 1.019 (1.002-1.036); Urobilinogen Normal mg/dL (Less than 2); pH, Urine 5.5 (5.0-9.0)
== END 2022-09-11 23:38 | disposition home or self-care (01) ==
LOC: ERS 19:39
DX: K29.80 Duodenitis without bleeding (principal); D72.829 Elevated white blood cell count, unspecified; I10 Essential (primary) hypertension
CPT/HCPCS: 74177; 80053; 81003; 83605; 83690; 85025; 87086; 93005; 96361; 96374; 96375; J2270; J2405; Q9967